=== PATIENT | female | born 1990 | race Caucasian/White ===

== ENCOUNTER 2020-07-16 16:19 | Emergency (ER) | payer OTHER ==
[~2020-07-16] VITALS: Ht 167.6 cm; Wt 74.8 kg
[2020-07-16 16:47] VITALS: BP 116/74
[2020-07-16] MEDS ORDERED: TORADOL IM STA (16:52)
[2020-07-16] MEDS ORDERED: TORADOL ONE (16:55)
--- NOTE | 2020-07-16 16:58 | ER.PDOC ---
General Chief Complaint: Lower Back Pain or Injury Stated Complaint: LOWER BACK PAIN Time seen by MD: 16:55 Source: patient Exam Limitations: no limitations History of Present Illness Initial Comments Low back pain since yesterday. 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 Pain is moderate, worse with movement and sharp. Pain does not radiate to the lower extremities. Timing/Duration: yesterday Severity/Quality: moderate Method of Injury: bending Associated Symptoms: lower back pain Allergies: Coded Allergies: erythromycin base (Verified Allergy, Unknown, 07/16/20) Past Medical History Medical History: no pertinent history Surgical History: no surgical history, tubal Family History Significant Family History: no pertinent family hx Social History Smoking: non-smoker Drug Use: none Review of Systems Constitutional: no symptoms reported EENTM: no symptoms reported Respiratory: no symptoms reported Cardiovascular: no symptoms reported Gastrointestinal: no symptoms reported Musculoskeletal: see HPI All Other Systems: Reviewed and Negative Physical Exam General Appearance: No Apparent Distress, WD/WN HEENT: PERRL/EOMI Neck: Non-Tender, Normal Alignment Cardiovascular/Respiratory: Regular Rate, Rhythm, No M/R/G, Normal Peripheral Pulses, No JVD, Normal Breath Sounds, No Respiratory Distress Gastrointestinal: Normal Bowel Sounds, No Organomegaly, No Pulsatile Mass, Non Tender, Soft Back: Vertebral Tenderness (L spine) Extremities: No Evidence of Injury, Normal Range of Motion, Non-Tender, No Pedal Edema, Pelvis Stable 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, 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, mood/effect nml, No Motor/Sensory Deficits, Relexes nml Skin: Normal Color, Warm/Dry Results/Orders Results/Orders Orders - ISABELLE HATCH MD Xr Lspine 2-3v (07/16/20 16:52) Ketorolac Tromethamine (Toradol) (07/16/20 16:52) Vital Signs Date Time Temp Pulse Resp B/P (MAP) Pulse Ox O2 Delivery O2 Flow Rate FiO2 07/16/20 16:56 98.4 71 20 97 07/16/20 16:47 98.4 71 20 97 07/16/20 16:47 98.4 71 20 Administered Medications Medications (Trade) Dose Ordered Sig/Barney Route PRN Reason Start Time Stop Time Status Last Admin Dose Admin Ketorolac Tromethamine (Toradol) 60 mg STAT STAT IM 07/16/20 16:52 07/16/20 16:54 DC 07/16/20 17:03 60 MG EKG/XRAY/CT/US XRAY Comments: Normal L spine ER DEPART Departure Time of Disposition: 17:50 Disposition: 01 HOME, SELF-CARE Impression: Primary Impression: Low back pain Additional Impression: Lumbar sprain Condition: Stable Referrals: PCP,UNKNOWN (PCP) PRIMARY CARE PROVIDER Additional Instructions: Diclofenac Flexeril Follow-up with your PCP in 1 week Return to ED if worsening or concerns You may return to work tomorrow if you are feeling better. Duration or Time Spent with Pa: 20 min Problem Qualifiers Primary Impression: Low back pain Chronicity: acute Back pain laterality: unspecified Sciatica presence: without sciatica Qualified Codes: M54.5 - Low back pain Additional Impression: Lumbar sprain Encounter type: initial encounter Qualified Codes: S33.5XXA - Sprain of ligaments of lumbar spine, initial encounter ISABELLE HATCH MD Jul 16, 2020 16:58
--- NOTE | 2020-07-16 17:15 | DIREP ---
PROCEDURE:XRAY SPINE LUMBAR 2-3 VWS COMPARISON:None. INDICATIONS:Pain TECHNIQUE:AP, lateral, and coned down lateral views of the lumbar spine are provided. FINDINGS: ALIGNMENT:Normal. VERTEBRAE:Normal. DISK SPACES:Normal. SPONDYLOLISTHESIS:None. SACROILIAC JOINTS:Normal. OTHER:Normal. CONCLUSION:Normal examination. Dictated by: Srini Altamirano M.D. on 07/16/2020 at 05:13 PM
[2020-07-16 17:54] VITALS: BP 141/72
== END 2020-07-16 18:00 | disposition home or self-care (01) ==
LOC: ER 16:19
DX: S33.5XXA Sprain of ligaments of lumbar spine, initial encounter (principal); Z88.1 Allergy status to other antibiotic agents; W19.XXXA Unspecified fall, initial encounter; Y93.89 Activity, other specified; Y92.098 Other place in other non-institutional residence as the place of occurrence of the external cause; Y99.8 Other external cause status
CPT/HCPCS: 72100; 96372; 99283; J1885